=== PATIENT | male | born 1960 | race Caucasian/White ===

== ENCOUNTER → 2020-08-15 08:14 | Outpatient (CLI) | payer MEDICARE, SELFPAY ==
--- NOTE | 2020-08-15 08:19 | XR_ITS ---
PROCEDURE: XR LUMBAR SPINE MIN 4V CLINICAL INDICATION: LOW BACK PAIN COMPARISON: No exams were available for comparison FINDINGS: No fracture or dislocation. No lytic or blastic change. There is normal mineralization. There is normal alignment. Degenerative disc disease is present in the lower thoracic spine, T12-L1, L1-L2, and L2-L3. There is minimal retrolisthesis of L2 of 2-3 mm. Anterior osteophytes are present at T12 L1 L2 in the superior aspect of L3. There is mild lumbar scoliosis convex right. Facet arthritic changes are present at L5-S1. Other findings:None. IMPRESSION: Degenerative changes of the lower thoracic and lumbar spine as described above. Dictated by: Henry Cruz MD 08/15/2020 18:17 Henry Cruz MD in [place] 08/15/2020 18:17
== END ==
PROVIDERS: PCP Family Medicine; Visit Provider Family Medicine
DX: M54.5 Low back pain (principal)
CPT/HCPCS: 72110

== ENCOUNTER 2020-12-10 23:54 | Emergency (ER) | payer MEDICARE, SELFPAY ==
[2020-12-11] VITALS (14 sets, daily range): BP systolic 119–159; BP diastolic 72–100; PULSE 62–89; RESP 12–19; TEMP 36.5–36.6; O2SAT 93–98; BMI 27.5
--- NOTE | 2020-12-11 00:43 | CT_ITS ---
PROCEDURE INFORMATION: Exam: CT Head Without Contrast Exam date and time: 12/11/2020 12:43 AM Age: 60 years old Clinical indication: Dizziness; Patient HX: Dizzy nauseated TECHNIQUE: Imaging protocol: Computed tomography of the head without contrast. Radiation optimization: All CT scans at this facility use at least one of these dose optimization techniques: automated exposure control; mA and/or kV adjustment per patient size (includes targeted exams where dose is matched to clinical indication); or iterative reconstruction. COMPARISON: No relevant prior studies available. FINDINGS: Brain: Minimal atrophy. No intracranial hemorrhage. No mass. No definite edema. Cerebral ventricles: No hydrocephalus. Paranasal sinuses: No acute sinusitis. Mastoid air cells: No significant effusion. Orbital cavity: Unremarkable as visualized. Vasculature: Mild atherosclerotic disease of intracranial arteries. Bones/joints: No acute fracture. Soft tissues: Unremarkable. IMPRESSION: No definite acute intracranial abnormality. If symptoms persist, consider MRI.
--- NOTE | 2020-12-11 00:43 | ECG_ITS ---
APPROVED REPORT Exam: Resting ECG HR:74 bpm ECG Measurements Heart Rate 74 AXES AK 160 P 45 QRSd 86 QRS 60 QT 388 T 65 QTc 430 Conclusion Normal sinus rhythm Normal ECG Electronically signed by : Jim Ortega, 12/11/2020 21:36:25
--- NOTE | 2020-12-11 00:43 | XR_ITS ---
PROCEDURE INFORMATION: Exam: XR Chest Exam date and time: 12/11/2020 12:43 AM Age: 60 years old Clinical indication: Patient HX: Chest tightness dizzy nausea TECHNIQUE: Imaging protocol: XR of the chest. Views: 2 views. COMPARISON: No relevant prior studies available. FINDINGS: Lungs: Mild lower lung reticular pulmonary opacities have no correlate on CT examination. This is most likely atelectasis. Pleural spaces: Unremarkable. No pleural effusion. No pneumothorax. Heart/Mediastinum: Unremarkable. No cardiomegaly. Bones/joints: Unremarkable. IMPRESSION: No acute findings.
--- NOTE | 2020-12-11 00:46 | CT_ITS ---
PROCEDURE INFORMATION: Exam: CT Abdomen And Pelvis With Contrast Exam date and time: 12/11/2020 12:46 AM Age: 60 years old Clinical indication: Nausea and other: Dizzy; Prior surgery; Surgery date: 6+ months; Surgery type: Hernia; Patient HX: Nausea dizzy sweating TECHNIQUE: Imaging protocol: Computed tomography of the abdomen and pelvis with contrast. Radiation optimization: All CT scans at this facility use at least one of these dose optimization techniques: automated exposure control; mA and/or kV adjustment per patient size (includes targeted exams where dose is matched to clinical indication); or iterative reconstruction. Contrast material: ISOVUE; Contrast volume: 75 ml; Contrast route: IV; COMPARISON: CR XR CHEST 2V 12/11/2020 1:40 AM FINDINGS: Liver: Normal. No mass. Gallbladder and bile ducts: Normal. No calcified stones. No ductal dilation. Pancreas: Normal. No ductal dilation. Spleen: Normal. No splenomegaly. Adrenal glands: Normal. No mass. Kidneys and ureters: Nonobstructing right renal calculi. Low attenuation renal lesions measuring up to 7 mm in diameter are incompletely characterized, but are likely cysts. No followup imaging is warranted. Stomach and bowel: Mild nonspecific bowel wall thickening of the small bowel and colon. Moderate sigmoid diverticulosis without diverticulitis. Moderate small bowel feces. Appendix: Unremarkable appendix. Intraperitoneal space: Unremarkable. No free air. No significant fluid collection. Vasculature: Mild atherosclerotic changes of the arteries. Coronary artery disease. Lymph nodes: Unremarkable. No enlarged lymph nodes. Urinary bladder: Unremarkable as visualized. Reproductive: Mild prostate enlargement. Bones/joints: Unremarkable. No acute fracture. Soft tissues: Tiny fat containing umbilical hernia. IMPRESSION: 1. Mild nonspecific bowel wall thickening of the small bowel and colon. This suggests enterocolitis. 2. Nonobstructing right renal calculi. COMMENTS: Consistent with the [employer]'s Incidental Findings Committee white paper ([facility] 2018): Any incidental renal lesion less than 1 cm or classified as too small to characterize, or any incidental cystic renal lesion characterized as simple-appearing, is likely benign. No follow-up imaging is recommended for these lesions per consensus recommendations based on imaging criteria.
[2020-12-11 00:51] LABS: Basophils % 0.4 % (0.1-2.0); Eosinophils # 0.1 K/mm3 (0.0-0.4); Eosinophils % 1.6 % (0.1-12.0); Hematocrit 46.6 % (42.0-52.0); Hemoglobin 15.9 g/dL (14.1-18.0); Lymphocytes % 23.9 % (10-50); Mean Corpuscular HGB Conc 34.2 g/dL (31.8-35.4); Mean Corpuscular Hemoglobin 34.3 pg (27.0-31.2); Mean Corpuscular Volume 100.3 fl (80-94); Mean Platelet Volume 7.1 fl (7.4-10.4); Monocytes # 0.6 K/mm3 (0.1-1.0); Monocytes % 7.1 % (1.7-9.3); Neutrophils # 5.8 K/mm3 (1.8-7.8); Neutrophils % 67.1 % (37.0-80.0); Platelet Count 224 K/mm3 (142-424); Red Blood Count 4.64 M/mm3 (4.60-6.20); Red Cell Distribution Width 12.2 % (11.5-17.5); White Blood Count 8.6 K/mm3 (4.8-10.8)
[2020-12-11 00:57] LABS: Chloride 104 mmol/L (98-107)
[2020-12-11 00:58] LABS: Potassium 3.8 mmoL/L (3.5-5.1); Sodium 141 mmol/L (136-145)
[2020-12-11 00:59] LABS: Amylase 65 U/L (30-110)
[2020-12-11 01:00] LABS: Alanine Aminotransferase 24 U/L (12-78); Aspartate Amino Transferase 28 U/L (17-59); Blood Urea Nitrogen 22 mg/dl (9-20); Creatinine Clearance Estimated 109 mL/min (50-200); Estimated Glomerular Filt Rate 86 ml/min (>60); GFR (African American) 104 ML/MIN (>60); Lipase 104 U/L (23-300)
[2020-12-11 01:01] LABS: Albumin Level 4.7 g/dl (3.5-5.0); Albumin/Globulin Ratio 1.8 (1.1-1.8); Alkaline Phosphatase 57 U/L (38-126); Anion Gap 13.8 mEq/L (5-15); Bilirubin,Total 0.4 mg/dl (0.2-1.3); Calcium 9.1 mg/dl (8.4-10.2); Carbon Dioxide 27 mmol/L (22.0-30.0); Globulin 2.6 g/dL (1.3-3.2); Glucose 110 mg/dl (74-100); Total Protein,Serum 7.3 g/dl (6.3-8.2)
[2020-12-11 01:21] LABS: Troponin I < 0.01 ng/ml (0.00-0.034)
--- NOTE | 2020-12-11 01:53 | HMH.EDDIZZ ---
ED Disposition Clinical Impression: Chest tightness Disposition: Home, Self-Care Condition on Discharge: Good Instructions: DI for Chest Pain Additional Instructions: call pcp today and recheck if any issues Referrals: Sarah Gamez MD [Primary Care Provider] - - Critical Care Critical Care Time: No Attestation: On 12/10/20, the high probability of a clinically significant, sudden or life threatening deterioration of the following system(s) required my full and direct attention, intervention and personal management. The time I documented below is in addition to time spent performing reported procedures but includes the following listed in this critical care notation. Medical Decision Making - Medical Records Medical records reviewed: Yes: I reviewed the patient's medical records. - Denis Inquiry Pt receiving controlled substance: No Vital Signs: 12/11/20 00:31 12/11/20 00:33 12/11/20 01:00 Temperature 97.7 F Temperature Source Oral Pulse Rate 83 82 Pulse Rate [Right] 78 Respiratory Rate 18 Blood Pressure 159/100 H 136/87 Blood Pressure [Right Arm] 158/98 H Blood Pressure Mean [Right Arm] 118 Blood Pressure Source [Right Arm] Automatic Cuff Blood Pressure Position [Right Arm] Supine 02 Sat by Pulse Oximetry 98 97 96 Oxygen Delivery Method Room Air 12/11/20 01:30 12/11/20 02:31 12/11/20 03:01 Temperature Temperature Source Pulse Rate 73 77 67 Pulse Rate [Right] Respiratory Rate 14 12 16 Blood Pressure 132/83 140/92 H 129/83 Blood Pressure [Right Arm] Blood Pressure Mean [Right Arm] Blood Pressure Source [Right Arm] Blood Pressure Position [Right Arm] 02 Sat by Pulse Oximetry 97 97 96 Oxygen Delivery Method 12/11/20 03:31 12/11/20 04:01 12/11/20 04:31 Temperature Temperature Source Pulse Rate 69 74 65 Pulse Rate [Right] Respiratory Rate 19 17 17 Blood Pressure 141/88 H 145/81 H 119/83 Blood Pressure [Right Arm] Blood Pressure Mean [Right Arm] Blood Pressure Source [Right Arm] Blood Pressure Position [Right Arm] 02 Sat by Pulse Oximetry 94 L 94 L 93 L Oxygen Delivery Method 12/11/20 05:01 12/11/20 05:31 12/11/20 06:01 Temperature Temperature Source Pulse Rate 66 62 65 Pulse Rate [Right] Respiratory Rate 13 17 14 Blood Pressure 127/82 128/72 135/95 H Blood Pressure [Right Arm] Blood Pressure Mean [Right Arm] Blood Pressure Source [Right Arm] Blood Pressure Position [Right Arm] 02 Sat by Pulse Oximetry 94 L 95 94 L Oxygen Delivery Method 12/11/20 06:31 Temperature Temperature Source Pulse Rate 73 Pulse Rate [Right] Respiratory Rate 17 Blood Pressure 133/85 Blood Pressure [Right Arm] Blood Pressure Mean [Right Arm] Blood Pressure Source [Right Arm] Blood Pressure Position [Right Arm] 02 Sat by Pulse Oximetry 95 Oxygen Delivery Method - Lab Data Lab results reviewed: Yes: I reviewed the patient's lab results. Lab Results 12/11/20 00:43: WBC 8.6, RBC 4.64, Hgb 15.9, Hct 46.6, MCV 100.3 H, MCH 34.3 H, MCHC 34.2, RDW 12.2, Plt Count 224, MPV 7.1 L, Neut % (Auto) 67.1, Lymph % (Auto) 23.9, [place] % (Auto) 7.1, Eos % (Auto) 1.6, Baso % (Auto) 0.4, Neut # (Auto) 5.8, Lymph # (Auto) 2.0, [place] # (Auto) 0.6, Eos # (Auto) 0.1, Baso # (Auto) 0.0, ESR 24 H 12/11/20 00:43: Sodium 141, Potassium 3.8, Chloride 104, Carbon Dioxide 27, Anion Gap 13.8, BUN 22 H, Creatinine 0.90, Estimated Creat Clear 109, Estimated GFR 86, Est GFR ( Amer) 104, Glucose 110 H, Calcium 9.1, Total Bilirubin 0.4, AST 28, ALT 24, Alkaline Phosphatase 57, Troponin I < 0.01, C-Reactive Protein 0.6, Total Protein 7.3, Albumin 4.7, Globulin 2.6, Albumin/Globulin Ratio 1.8, Procalcitonin 0.056 12/11/20 00:43: Amylase 65, Lipase 104 12/11/20 03:31: Troponin I < 0.01 Result diagrams: 12/11/20 00:43 12/11/20 00:43 Orders (Tests/Meds): ED MEDICATIONS Generic Name Dose Route Start Last Admin Trade Name
[2020-12-11 02:33] LABS: Erythrocyte Sedimentation Rate 24 mm/hr (0-20)
[2020-12-11 02:54] LABS: C-Reactive Protein 0.6 mg/L (0-4)
[2020-12-11 03:09] LABS: Procalcitonin 0.056 ng/mL (0.0-2.0)
--- NOTE | 2020-12-11 05:31 | PC.NURSE ---
Called lab to check on time for 2nd troponin, Breanna states it is running at this time, Sample submitted at [id number].
[2020-12-11 05:47] LABS: Troponin I < 0.01 ng/ml (0.00-0.034)
== END 2020-12-11 07:30 | disposition home or self-care (01) ==
PROVIDERS: Emergency Provider Emergency Medicine; PCP Family Medicine
DX: R07.89 Other chest pain (principal); R42 Dizziness and giddiness; I10 Essential (primary) hypertension; Z85.810 Personal history of malignant neoplasm of tongue; Z79.899 Other long term (current) drug therapy
CPT/HCPCS: 70450; 71046; 74177; 80053; 82150; 83690; 84145; 84484; 85025; 85651; 86140; 93005; 96365; 96375; 99282; J2405; Q9967

== ENCOUNTER → 2021-06-26 12:12 | Outpatient (CLI) | payer MEDICARE, SELFPAY ==
--- NOTE | 2021-06-26 12:16 | XR_ITS ---
FINAL REPORT CLINICAL HISTORY: LT FLANK PAIN FINDINGS: A single view of the abdomen was obtained. There is a nonobstructive bowel gas pattern. There are no abnormally dilated loops of small bowel. There is mild lumbar scoliosis convex to the right. No abnormal calcifications identified. IMPRESSION: No abnormal calcifications identified. Reviewed, Interpreted and Dictated by Franky Ibrahim MD Transcribed by Billie Gates Authenticated by Franky Ibrahim MD on 06/26/2021 01:27:42 PM [facility]
== END ==
PROVIDERS: PCP Family Medicine; Visit Provider Nurse Practitioner Family
DX: R10.9 Unspecified abdominal pain (principal); Z87.898 Personal history of other specified conditions
CPT/HCPCS: 74018

== ENCOUNTER → 2021-07-11 09:35 | Outpatient (CLI) | payer MEDICARE, SELFPAY | PROVIDERS: PCP Family Medicine; Visit Provider Nurse Practitioner Family | DX: R10.9 Unspecified abdominal pain (principal); Z87.442 Personal history of urinary calculi ==

== ENCOUNTER → 2021-07-17 09:16 | Outpatient (CLI) | payer MEDICARE, SELFPAY ==
--- NOTE | 2021-07-17 09:19 | CT_ITS ---
FINAL REPORT TECHNIQUE: Axial CT images of the abdomen and pelvis were obtained before and after the administration of IV contrast. Oral contrast was administered.This study was performed with techniques to keep radiation doses as low as reasonably achievable (ALARA). Individualized dose reduction techniques using automated exposure control or adjustment of mA and/or kV according to the patient''s size were employed. CLINICAL HISTORY: LT FLANK PAIN,H/O KIDNEY STONES, hx of throat cancer 8-9 years ago with radiation and chemo non smoker, non diabetic FINDINGS: Abdomen: The lung bases are clear. The heart is normal in size. The liver has an unremarkable appearance, without evidence of mass or biliary duct dilatation. The gallbladder is present. The spleen is unremarkable. There is a stable 15 mm nodule in the right adrenal gland favored to represent an adenoma. The pancreas has an unremarkable appearance. There are several, less than 3 mm, nonobstructing right renal stones. There is a less than 1 cm mass in the lower pole the left kidney which is stable and may represent a cyst. There is no hydronephrosis. The aorta is normal in caliber. There is no free fluid or adenopathy. There is a small umbilical hernia containing fat. Pelvis: The appendix is normal. The urinary bladder is unremarkable. There are multiple colonic diverticula without evidence of diverticulitis. There are small bilateral inguinal hernias containing fat. There is no evidence of bowel obstruction. IMPRESSION: 1. Stable right adrenal adenoma. 2. Nonobstructing right renal stones. 3. Multiple colonic diverticula without evidence of diverticulitis. Reviewed, Interpreted and Dictated by Jorge Schneider III, MD Transcribed by Hetal Torres Authenticated by Jorge Schneider III, MD on 07/17/2021 10:35:50 AM [facility]
== END ==
PROVIDERS: PCP Family Medicine; Visit Provider Nurse Practitioner Family
DX: R10.9 Unspecified abdominal pain (principal); Z87.442 Personal history of urinary calculi
CPT/HCPCS: 74178; Q9967

== ENCOUNTER → 2022-03-26 16:56 | Outpatient (CLI) | payer MEDICARE, SELFPAY ==
--- NOTE | 2022-03-26 | XR_ITS ---
PROCEDURE INFORMATION: Exam: XR Lumbosacral Spine Exam date and time: 03/26/2022 5:13 PM Age: 61 years old Clinical indication: Low back pain TECHNIQUE: Imaging protocol: Radiologic exam of the lumbosacral spine. Views: 2 or 3 views. COMPARISON: CR XR LUMBAR SPINE MIN 4V 08/15/2020 8:20 AM FINDINGS: Bones/joints: The vertebral body heights are maintained. No fractures. Hypertrophy and degeneration of the lower facet joints again noted. Mild scoliotic curvature again noted. Normal alignment, otherwise. Mild narrowing of the T12-L1 and L1-L2 disc spaces again noted. The remaining disc spaces are maintained. Small marginal endplate osteophytes at multiple levels. The spine is unchanged in the interval. Soft tissues: Unremarkable. IMPRESSION: 1. No fractures or dislocations. 2. Degenerative disc disease. 3. Facet joint arthropathy.
== END ==
PROVIDERS: PCP Family Medicine; Visit Provider Nurse Practitioner Family
DX: M54.50 Low back pain, unspecified (principal)
CPT/HCPCS: 72100

== ENCOUNTER → 2022-04-02 08:48 | Outpatient (CLI) | payer MEDICARE, SELFPAY ==
--- NOTE | 2022-04-02 09:00 | CT_ITS ---
FINAL REPORT TECHNIQUE: After the administration of oral and intravenous contrast, axial images were obtained through the abdomen and pelvis by computed tomography. The study was performed with techniques to keep radiation dose as low as reasonably achievable, (ALARA). Individual dose reduction techniques using automated exposure control or adjustment of mA and/or kV according to the patient's size were employed. CLINICAL HISTORY: LT FLANK PAIN,H/O KIDNEY STONES,HEMATURIA,MALAISE COMPARISON: 07/17/2021 FINDINGS: Abdomen: The lung bases are clear. The liver is normal in size and attenuation. The spleen is unremarkable. There is a 14 mm right adrenal nodule which is stable consistent with an adenoma. The pancreas is unremarkable. There are several less than 3 mm nonobstructing right renal stones. There is mild vascular calcification. There is a lobulated umbilical hernia containing fat. Small bilateral renal cysts are identified. The aorta is normal in caliber. There is no free fluid or adenopathy. Pelvis: The appendix is normal. There is descending and sigmoid diverticulosis without evidence of diverticulitis. The prostate is moderately enlarged. There are small inguinal hernias containing fat. No ureteral stones are identified. The urinary bladder is unremarkable. There is no free fluid or adenopathy. IMPRESSION: Nonobstructing right renal stones. Moderate prostate enlargement. Hernias as above. Reviewed, Interpreted and Dictated by Jorge Schneider III, MD Transcribed by Jailene Paulino Authenticated and [facility]
== END ==
PROVIDERS: PCP Family Medicine; Visit Provider Nurse Practitioner Family
DX: Z87.442 Personal history of urinary calculi (principal); R10.9 Unspecified abdominal pain; R53.81 Other malaise; R31.9 Hematuria, unspecified
CPT/HCPCS: 74177; Q9967

== ENCOUNTER 2024-07-05 10:38 | Outpatient (CLI) | payer OTHER, SELFPAY ==
--- NOTE | 2024-07-05 10:39 | CT_ITS ---
FINAL REPORT TECHNIQUE: Thin section axial CT images with coronal and sagittal reformats were performed through the neck. This study was performed with techniques to keep radiation doses as low as reasonably achievable (ALARA). Individualized dose reduction techniques using automated exposure control or adjustment of mA and/or kV according to the patient''s size were employed. CLINICAL HISTORY: unexplained edema of the vocal cords HISTORY OF SQUAMOUS CELL CARCINOMA FINDINGS: There is loss of height at the C5-6 and C6-7 discs. There is endplate hypertrophy with moderate to high-grade bilateral neuroforaminal narrowing, most evident on the left at C5-6. There is lobular mucoperiosteal thickening of the sphenoid sinuses. There are a few small scattered lymph nodes which are not significantly enlarged. Salivary glands are normal. Larynx is unremarkable. Thyroid gland is unremarkable. IMPRESSION: Minimal changes of chronic sphenoid sinusitis. Scattered cervical lymph nodes without significant enlargement. Reviewed, Interpreted and Dictated by Franky Ibrahim MD Transcribed by Beryl Erazo Authenticated and [facility]
== END 2024-07-05 23:59 | disposition home or self-care (01) ==
LOC: RAD 10:39
PROVIDERS: PCP Family Medicine; Visit Provider Nurse Practitioner
DX: J38.4 Edema of larynx (principal)
CPT/HCPCS: 70490